=== PATIENT | male | born 1955 ===

== ENCOUNTER 2024-04-21 09:29 | Outpatient (CLI) | payer MEDICARE, BC | END 2024-04-21 09:30 | disposition home or self-care (01) | LOC: SCSRAD 09:29 | PROVIDERS: ATTEND Family Medicine | DX: S99.922A Unspecified injury of left foot, initial encounter (principal); S92.422A Displaced fracture of distal phalanx of left great toe, initial encounter for closed fracture; S92.412A Displaced fracture of proximal phalanx of left great toe, initial encounter for closed fracture ==